=== PATIENT | female | born 1970 | race African-American/Black ===

== ENCOUNTER 2016-08-20 04:34 | Emergency (ER) | payer MEDICAID ==
[~2016-08-20] VITALS: Ht 170.2 cm; Wt 103.0 kg
[2016-08-20 05:28] VITALS: BP 136/78
== END 2016-08-20 05:38 | disposition home or self-care (01) ==
LOC: ER 04:34
DX: J06.9 Acute upper respiratory infection, unspecified (principal); H92.09 Otalgia, unspecified ear
CPT/HCPCS: 99282

== ENCOUNTER 2016-10-09 18:57 | Emergency (ER) | payer MEDICAID ==
[~2016-10-09] VITALS: Ht 170.2 cm; Wt 97.0 kg
[2016-10-09] MEDS ORDERED: KETOROLAC 60MG/2ML VIAL IM ONE (23:15)
[2016-10-10 01:25] VITALS: BP 101/66
== END 2016-10-10 01:30 | disposition home or self-care (01) ==
LOC: ER 22:09
DX: M25.572 Pain in left ankle and joints of left foot (principal)
CPT/HCPCS: 73610; 81025; 96372; 99284; J1885

== ENCOUNTER 2017-01-12 06:27 | Emergency (ER) | payer MEDICAID ==
[~2017-01-12] VITALS: Ht 167.6 cm; Wt 109.0 kg
[2017-01-12] MEDS ORDERED: KETOROLAC 30MG/ML VIAL IV STA (07:59)
[2017-01-12] MEDS ORDERED: SODIUM CHLORIDE 0.9% 1,000 ML IV ONE (07:59)
[2017-01-12 08:18] LABS: BASOPHILS % 0.8 % (0.0-2.0); EOSINOPHILS % 1.1 % (0.0-5.0); HEMOGLOBIN. 12.6 g/dL (12.0-16.0); LYMPHOCYTES % 37.6 % (20.0-50.0); MEAN CORPUSCULAR HEMOGLOBIN 28.1 pg (28.0-32.0); MEAN CORPUSCULAR VOLUME 84.5 fL (81.0-99.0); MEAN PLATELET VOLUME 7.3 fl (7.4-10.4); MONOCYTES % 6.4 % (2.0-8.0); NEUTROPHILS % 54.1 % (40.0-76.0); PLATELET 245 x1000/uL (130-400); RED BLOOD CELL COUNT 4.49 mill/uL (4.2-5.4); RED CELL DISTRIBUTION WIDTH 14.3 % (11.6-14.6)
[2017-01-12 08:29] LABS: PROTHROMBIN TIME 10.7 sec (9.4-11.6)
[2017-01-12 08:32] LABS: HCG SCREEN NEGATIVE
[2017-01-12 08:35] LABS: CARBON DIOXIDE 27 mEq/L (21-32); CHLORIDE 109 mEq/L (98-107)
[2017-01-12 10:27] LABS: CLARITY URINE CLEAR (CLEAR); COLOR URINE YELLOW (YELLOW); GLUCOSE URINE NEGATIVE (NEGATIVE); KETONES URINE NEGATIVE (NEGATIVE); LEUKOCYTE ESTERASE URINE TRACE (NEGATIVE); NITRITE URINE NEGATIVE (NEGATIVE); OCCULT BLOOD URINE NEGATIVE (NEGATIVE); PROTEIN URINE NEGATIVE (NEGATIVE); UROBILINOGEN URINE 0.2 E.U./dL (0.2-1.0)
[2017-01-12 10:39] LABS: *AMPHETAMINES SCREEN URINE NEGATIVE (NEGATIVE); *BARBITURATES SCREEN URINE NEGATIVE (NEGATIVE); *BENZODIAZEPINES SCREEN URINE NEGATIVE (NEGATIVE); *COCAINE SCREEN URINE NEGATIVE (NEGATIVE); CANNABINOID URINE SCREEN NEGATIVE (NEGATIVE); METHADONE URINE SCREEN NEGATIVE (NEGATIVE); OPIATES URINE SCREEN NEGATIVE (NEGATIVE); PHENCYCLIDINE URINE SCREEN NEGATIVE (NEGATIVE)
[2017-01-12 11:05] VITALS: BP 138/82
== END 2017-01-12 11:16 | disposition home or self-care (01) ==
LOC: ER 06:27
DX: B34.9 Viral infection, unspecified (principal); R03.0 Elevated blood-pressure reading, without diagnosis of hypertension
CPT/HCPCS: 36415; 80053; 80305; 81001; 83690; 84703; 85025; 85610; 96361; 96374; 99285; J1885; J7030; Z7610

== ENCOUNTER 2022-05-30 08:50 | Emergency (ER) | payer MEDICAID ==
[~2022-05-30] VITALS: Ht 167.6 cm; Wt 97.0 kg
[2022-05-30 09:08] VITALS: BP 177/93
[2022-05-30] MEDS ORDERED: GABA-290 MT (11:17)
[2022-05-30] MEDS ORDERED: GABAPENTIN 300MG CAPSULE PO ONE (11:30)
== END 2022-05-30 11:37 | disposition home or self-care (01) ==
LOC: ER 09:13
DX: M79.671 Pain in right foot (principal)
CPT/HCPCS: 73630; 99283